=== PATIENT | male | born 1975 | race Two or more races ===

== ENCOUNTER 2016-10-04 19:46 | Emergency (ER) | payer BC ==
[~2016-10-04] VITALS: Ht 165.1 cm; Wt 78.5 kg
[2016-10-04 20:22] LABS: POINT-OF-CARE METER ID UU13113778
[2016-10-04 21:27] LABS: HEMATOCRIT 38.2 % (38.0-50.0); MCH 29.9 PG (29.0-34.0); MCV 87.8 FL (86-99); MEAN PLAT.VOLUME 10.8 uM^3 (9.0-12.4); PLATELET COUNT 400 K/uL (156-360); RBC DIS.WIDTH-CV 12.4 % (11.8-14.6); RBC DIS.WIDTH-SD 40.3 % (39-53); RED BLOOD COUNT 4.35 M/uL (4.00-5.50); WHITE BLOOD COUNT 6.8 K/uL (4.1-10.2)
[2016-10-04 21:43] LABS: CHLORIDE 103 mEq/L (99-109); POTASSIUM 4.1 mEq/L (3.7-5.4); SODIUM 138 mEq/L (136-147)
[2016-10-04 21:45] LABS: GLUCOSE 314 mg/dL (70-99)
[2016-10-04 21:46] LABS: ANION GAP 9 MEQ/L (2-14)
[2016-10-04 21:50] LABS: UREA NITROGEN (BUN) 16 mg/dL (9-23)
[2016-10-04 21:58] LABS: GFR ESTIMATE (CALCULATED) > 59 mL/min/
[2016-10-04] MEDS ORDERED: [UNRECOGNIZED DRUG - OTHER] BOTH EYES (23:55)
[2016-10-04] MEDS ORDERED: ACYCLOVIR800 MG PO (23:55)
[2016-10-05 00:07] VITALS: BP 134/97
== END 2016-10-05 00:09 | disposition home or self-care (01) ==
LOC: EME 19:46
DX: G51.0 Bell's palsy (principal); E11.65 Type 2 diabetes mellitus with hyperglycemia
CPT/HCPCS: 70450; 80048; 82948; 85027; 99281; 99284; J1100